=== PATIENT | female | born 1965 | race Caucasian/White ===

== ENCOUNTER 2019-02-02 09:09 | Day surgery (SDC) | payer OTHER ==
[2019-01-25 16:55] VITALS: BMI 19.4
[2019-02-02] MEDS ORDERED: PROPOFOL 20 ML ONE ×2 (10:23)
[2019-02-02 11:33] VITALS: BP 98/61; PULSE 74; TEMP 97.4
== END 2019-02-02 11:35 | disposition home or self-care (01) ==
LOC: FASU-ENDO 09:09
PROVIDERS: ATTEND Internal Medicine Gastroenterology
PROC: 0DJD8ZZ Inspection of Lower Intestinal Tract, Via Natural or Artificial Opening Endoscopic (ICD-10-PCS; principal; 2019-02-02 10:37)
DX: K92.1 Melena (principal); K64.1 Second degree hemorrhoids; Q43.8 Other specified congenital malformations of intestine

== ENCOUNTER 2023-06-16 10:47 | Emergency (ER) | payer OTHER ==
[2023-06-16 11:04] VITALS: BP 131/74; PULSE 80; RESP 18; TEMP 98.3; BMI 17.2
[2023-06-16] MEDS: SODIUM CHLORIDE 0.9% 500 ML INFUS.BAG IV ONE (11:40)
[2023-06-16] MEDS: ACETAMINOPHEN 1000 MG/100 ML BAG IVPB ONE (11:50)
[2023-06-16] MEDS ORDERED: FAMOTIDINE 20 MG/50 ML IVPB 20 MG/50 ML MG IVPB ONE (12:11)
[2023-06-16] MEDS ORDERED: MAG HYDROX/AL HYDROX/SIMETH 30 ML UNIT-DOSE CUP ONE (12:11)
[2023-06-16] MEDS ORDERED: ACETAMINOPHEN INJECTION 100 ML IVPB ONE (12:11)
[2023-06-16] MEDS: MAG HYDROX/AL HYDROX/SIMETH 30 ML UNIT-DOSE CUP PO ONE (12:19)
[2023-06-16] MEDS: FAMOTIDINE 20 MG/50 ML IVPB 20 MG/50 ML MG IVPB ONE (12:20)
[2023-06-16 12:23] LABS: HEMATOCRIT 38.4 % (32.4-45.2); HEMOGLOBIN 12.9 G/dL (10.7-15.3); MCH 31.6 pg (25.7-33.7); MCHC 33.7 g/dl (32.0-36.0); MEAN CELL VOLUME 93.9 fl (80-96); MEAN PLT VOLUME 7.7 fl (7.5-11.1); RBC 4.09 10^6/uL (3.60-5.2); RDW 13.9 % (11.6-15.6); WHITE BLOOD COUNT 6.5 10^3/uL (4.0-10.8)
[2023-06-16 12:35] LABS: ALBUMIN 4.8 g/dl (3.4-5.0); BILIRUBIN,TOTAL 0.5 mg/dl (0.2-1); CALCIUM 9.9 mg/dl (8.5-10.1); CREATININE 0.8 mg/dl (0.6-1.3); POTASSIUM 4.3 mmol/L (3.5-5.1); TOT PROT 6.9 g/dl (6.4-8.2)
[2023-06-16 12:57] LABS: PLATELET ESTIMATE ADEQUATE
== END 2023-06-16 13:45 | disposition home or self-care (01) ==
LOC: FER 10:47
PROC: 3E033GC Introduction of Other Therapeutic Substance into Peripheral Vein, Percutaneous Approach (ICD-10-PCS; principal; 2023-06-16)
PROC: 3E030NZ Introduction of Analgesics, Hypnotics, Sedatives into Peripheral Vein, Open Approach (ICD-10-PCS; 2023-06-16)
DX: R10.31 Right lower quadrant pain (principal); R10.32 Left lower quadrant pain; R14.0 Abdominal distension (gaseous); R11.0 Nausea; R53.83 Other fatigue
CPT/HCPCS: 36415; 74177-TC; 80053; 81003; 83690; 85025; 87086; 99285-25; J0131; Q9967